=== PATIENT | male | born 1980 | race Caucasian/White ===

== ENCOUNTER 2018-01-24 12:02 | Emergency (ER) | payer MEDICAID ==
[2018-01-24] MEDS ORDERED: METO25TA93 PO (12:07)
[2018-01-24] MEDS ORDERED: LEVE500T75 PO (12:07)
[2018-01-24] MEDS ORDERED: SERT-184 PO (12:07)
[2018-01-24] MEDS ORDERED: NS(*) 0.9% 1000 ML BAG 1,000 ML IV ONE (12:15)
[2018-01-24] MEDS ORDERED: ONDANSETRON 4 MG/2 ML VIAL IVP ONE (12:15)
--- NOTE | 2018-01-24 12:30 | EKG ---
FACILITY: [facility] PATIENT NAME: KENDALL STILES : [id number] MR: [id number] V: [id number] EXAM DATE: ORDERING PHYSICIAN: GILBERT CHOPRA TECHNOLOGIST: Test Reason : Blood Pressure : / mmHG Vent. Rate : 105 BPM Atrial Rate : 105 BPM P-R Int : 144 ms QRS Dur : 094 ms QT Int : 368 ms P-R-T Axes : 076 060 056 degrees QTc Int : [address] abnormality, possible digitalis effect Abnormal ECG No previous ECGs available Confirmed by STEPHANIE DURAN ([id number]) on 01/24/2018 10:24:02 PM Referred By: AUDREY Confirmed By:STEPHANIE DURAN
[2018-01-24 12:31] LABS: PLATELET COUNT, AUTOMATED 158 K/uL (150-450)
[2018-01-24] MEDS ORDERED: KCL (*) 20 MEQ/100 ML PREMIX 100 ML IV ONE (12:40)
[2018-01-24] MEDS ORDERED: IOPAMIDOL 76% 75 ML INFUS BTL 75 ML ONE (12:45)
--- NOTE | 2018-01-24 12:54 | ER Report ---
History and Physical Time Seen By MD: 12:10 Hx. of Stated Complaint: PT REPORTS VOMITING FOR 3 DAYS HPI/ROS Chief concern: vomiting HPI: 37 year old male presents with concerns of abdominal pain and vomiting x3 days. Reports onset of small amount of hematemesis this AM, . Denies fever. Reports average daily intake of one pint of hard liquor, but states last alcoholic beverage was 2 days ago. Reports small amount of stool this AM, denies hematochezia, melena. Reports hematuria this AM. Denies burning with urination, dysuria. Describes pain as "all over" extending from his lower abdomen to his chest. Denies recent illnesses or abdominal surgeries. Review of Systems General: Denies fevers. Reports chills, sweats. Respiratory: Denies difficulty breathing. CV: Reports pain throughout chest cavity. GI: Reports vomiting x3 days. Reports small amount of hematemesis this AM. Reports small amount of stool, denies hematochezia, melena. : Reports gross hematuria. Denies dysuria, burning with urination. Allergies: Coded Allergies: No Known Drug Allergies (Unverified , 01/24/18) Home Meds Active Scripts Potassium Chloride (KLOR-CON M20) 20 Meq Tab.er.prt, 20 MEQ PO QDAY for 30 Days , #30 TAB Prov:GILBERT CHOPRA 01/24/18 Ketorolac Tromethamine (KETOROLAC TROMETHAMINE) 10 Mg Tab, 10 MG PO Q6H for 5 Days, #20 TAB Prov:GILBERT CHOPRA 01/24/18 Tamsulosin Hcl (FLOMAX) 0.4 Mg Cap.er.24h, 0.4 MG PO QDAY for 14 Days, #14 CAP Prov:GILBERT CHOPRA [facility] 01/24/18 Ondansetron (ZOFRAN ODT) 4 Mg Tab.rapdis, 4 MG PO Q6H Y for NAUSEA/VOMITING for 5 Days, #20 TAB.JIMMY Prov:GILBERT CHOPRA [facility] 01/24/18 Reported Medications Metoprolol Tartrate (METOPROLOL TARTRATE) 25 Mg Tablet, 1 TAB PO BID, TAB 01/24/18 Levetiracetam (LEVETIRACETAM) 500 Mg Tab.er.24h, 500 MG PO BID, TAB 01/24/18 Sertraline Hcl (SERTRALINE HCL) 50 Mg Tablet, 1 TAB PO QDAY, TAB 01/24/18 Past Medical/Surgical History Reports history of seizures, hypertension, "kidney problems", anxiety. 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 Hx Alcohol Use: Yes (1 PINT/DAY) Constitutional Vital Sign - Last 24 Hours 01/24/18 01/24/18 01/24/18 01/24/18 12:02 12:03 12:12 12:22 Temp 98.2 Pulse 121 108 116 Resp 16 16 36 B/P (MAP) 118/104 118/104 (109) Pulse Ox 96 96 97 O2 Delivery Room Air 01/24/18 01/24/18 01/24/18 01/24/18 12:27 12:30 12:35 12:40 Pulse 105 95 100 Resp 29 23 21 B/P (MAP) 122/96 (105) Pulse Ox 96 99 98 01/24/18 01/24/18 01/24/18 01/24/18 13:00 13:15 13:30 13:45 Pulse 88 94 103 Resp 18 19 18 B/P (MAP) 135/95 (108) 117/84 (95) Pulse Ox 94 90 96 01/24/18 01/24/18 01/24/18 01/24/18 13:50 13:55 14:00 14:05 Pulse 85 107 119 90 Resp 23 15 14 12 B/P (MAP) 159/97 (117) Pulse Ox 94 96 97 95 01/24/18 01/24/18 01/24/18 01/24/18 14:10 14:15 14:20 14:25 Pulse 91 87 101 98 Resp 10 19 55 17 Pulse Ox 95 94 96 95 01/24/18 01/24/18 14:30 14:35 Pulse 99 Resp 20 B/P (MAP) 140/95 (110) Pulse Ox 95 Intake and Output 01/24/18 01/24/18 01/25/18 15:00 23:00 07:00 Intake Total 1100 ml Balance 1100 ml Physical Exam Physical Exam General: Alert, oriented x3. Well developed, well nourished. Patient appears to be experiencing acute nausea throughout exam. HEENT: TMs pearly caal and intact, no erythema. Posterior pharynx pink, tonsillar pillars 1+ without exudate. Respiratory: Clear to auscultation bilaterally. Normal respiratory effort. CV: S1, S1S2 without murmurs, rubs, gallops. Reg. rate and rhythm. GI: bowel sounds hypoactive all quadrants. Epigastric pain with palpation. Scattered dullness/tympany to percussion. After obtaining a thorough HPI, ROS, and physical exam, the following differentials were considered but not limited to: AZ, small bowel obstruction, pancreatitis, UTI, viral gastroenteritis, kidney stones. Medical Decision Making Data Points Result Diagram: 01/24/18 1200 01/24/18 1200 Laboratory Hematology Test 01/24/18 12:00 Red Blood Count 5.94 M/uL (4.00-5.60) Mean Corpuscular Volume 90.9 fL (80.0-96.0) Mean Corpuscular Hemoglobin 32.5 pg (26.0-33.0) Mean Corpuscular Hemoglobin Concent 35.7 g/dL (32.0-36.0) Red Cell Distribution Width 13.1 % (11.5-14.5) Mean Platelet Volume 9.6 fL (7.2-11.1) Neutrophils (%) (Auto) 77.4 % (39.4-72.5) Lymphocytes (%) (Auto) 12.9 % (17.6-49.6) Monocytes (%) (Auto) 9.4 % (4.1-12.4) Eosinophils (%) (Auto) 0.1 % (0.4-6.7) Basophils (%) (Auto) 0.2 % (0.3-1.4) Nucleated RBC Relative Count (auto) 0.1 /100WBC Neutrophils # (Auto) 12.1 K/uL (2.0-7.4) Lymphocytes # (Auto) 2.0 K/uL (1.3-3.6) Monocytes # (Auto) 1.5 K/uL (0.3-1.0) Eosinophils # (Auto) 0.0 K/uL (0.0-0.5) Basophils # (Auto) 0.0 K/uL (0.0-0.1) Nucleated RBC Absolute Count (auto) 0.01 K/uL Urine Color Red Urine Clarity Turbid Urine pH Color interference Urine Specific Onset Color interference Urine Protein Color interference Urine Glucose (UA) Color interference Urine Ketones Color interference Urine Blood Color interference Urine Nitrite Color interference Urine Bilirubin Color interference Urine Urobilinogen Color interference Urine Leukocyte Esterase Color interference Urine RBC 7175 /HPF (0-2/HPF) Urine WBC None /HPF (0-5/HPF) Urine Squamous Epithelial Cells None /LPF (</=FEW) Urine Bacteria Negative /HPF (NONE-FEW) Urine Mucus Few /HPF (NONE-FEW) Sodium Level 142 mmol/L (137-145) Potassium Level 2.8 mmol/L (3.5-5.0) Chloride Level 96 mmol/L (98-107) Carbon Dioxide Level 22 mmol/L (22-30) Blood Urea Nitrogen 18 mg/dl (9-21) Creatinine 1.00 mg/dl (0.66-1.25) Glomerular Filtration Rate Calc > 60.0 Random Glucose 164 mg/dl (75-110) Calcium Level 9.5 mg/dl (8.4-10.2) Total Bilirubin 2.5 mg/dl (0.2-1.3) Aspartate Amino Transf (AST/SGOT) 36 U/L (0-35) Alanine Aminotransferase (ALT/SGPT) 35 U/L (0-56) Alkaline Phosphatase 104 U/L (0-126) Troponin I < 0.012 ng/ml Total Protein 8.9 gm/dl (6.3-8.2) Albumin 4.8 g/dl (3.5-5.0) Amylase Level 62 U/L (0-110) Lipase 40 U/L (23-300) Serum Alcohol < 10 mg/dl Chemistry Test 01/24/18 12:00 White Blood Count 15.6 k/uL (4.5-11.0) Red Blood Count 5.94 M/uL (4.00-5.60) Hemoglobin 19.3 g/dL (14.0-18.0) Hematocrit 54.0 % (42.0-52.0) Mean Corpuscular Volume 90.9 fL (80.0-96.0) Mean Corpuscular Hemoglobin 32.5 pg (26.0-33.0) Mean Corpuscular Hemoglobin Concent 35.7 g/dL (32.0-36.0) Red Cell Distribution Width 13.1 % (11.5-14.5) Platelet Count 158 K/uL (150-450) Mean Platelet Volume 9.6 fL (7.2-11.1) Neutrophils (%) (Auto) 77.4 % (39.4-72.5) Lymphocytes (%) (Auto) 12.9 % (17.6-49.6) Monocytes (%) (Auto) 9.4 % (4.1-12.4) Eosinophils (%) (Auto) 0.1 % (0.4-6.7) Basophils (%) (Auto) 0.2 % (0.3-1.4) Nucleated RBC Relative Count (auto) 0.1 /100WBC Neutrophils # (Auto) 12.1 K/uL (2.0-7.4) Lymphocytes # (Auto) 2.0 K/uL (1.3-3.6) Monocytes # (Auto) 1.5 K/uL (0.3-1.0) Eosinophils # (Auto) 0.0 K/uL (0.0-0.5) Basophils # (Auto) 0.0 K/uL (0.0-0.1) Nucleated RBC Absolute Count (auto) 0.01 K/uL Urine Color Red Urine Clarity Turbid Urine pH Color interference Urine Specific Onset Color interference Urine Protein Color interference Urine Glucose (UA) Color interference Urine Ketones Color interference Urine Blood Color interference Urine Nitrite Color interference Urine Bilirubin Color interference Urine Urobilinogen Color interference Urine Leukocyte Esterase Color interference Urine RBC 7175 /HPF (0-2/HPF) Urine WBC None /HPF (0-5/HPF) Urine Squamous Epithelial Cells None /LPF (</=FEW) Urine Bacteria Negative /HPF (NONE-FEW) Urine Mucus Few /HPF (NONE-FEW) Glomerular Filtration Rate Calc > 60.0 Calcium Level 9.5 mg/dl (8.4-10.2) Total Bilirubin 2.5 mg/dl (0.2-1.3) Aspartate Amino Transf (AST/SGOT) 36 U/L (0-35) Alanine Aminotransferase (ALT/SGPT) 35 U/L (0-56) Alkaline Phosphatase 104 U/L (0-126) Troponin I < 0.012 ng/ml Total Protein 8.9 gm/dl (6.3-8.2) Albumin 4.8 g/dl (3.5-5.0) Amylase Level 62 U/L (0-110) Lipase 40 U/L (23-300) Serum Alcohol < 10 mg/dl Toxicology Test 01/24/18 12:00 Serum Alcohol < 10 mg/dl Urinalysis Test 01/24/18 12:00 Urine Color Red Urine Clarity Turbid Urine pH Color interference Urine Specific Onset Color interference Urine Protein Color interference Urine Glucose (UA) Color interference Urine Ketones Color interference Urine Blood Color interference Urine Nitrite Color interference Urine Bilirubin Color interference Urine Urobilinogen Color interference Urine Leukocyte Esterase Color interference Urine RBC 7175 /HPF (0-2/HPF) Urine WBC None /HPF (0-5/HPF) Urine Squamous Epithelial Cells None /LPF (</=FEW) Urine Bacteria Negative /HPF (NONE-FEW) Urine Mucus Few /HPF (NONE-FEW) EKG/Imaging EKG Interpretation Vent. Rate : 105 BPM Atrial Rate : 105 BPM P-R Int : 144 ms QRS Dur : 094 ms QT Int : 368 ms P-R-T Axes : 076 060 056 degrees QTc Int : [address] abnormality, possible digitalis effect Abnormal ECG No previous ECGs available Monitor Interpretation: Sinus Tachycardia Imaging EXAMINATION: CT Abdomen and Pelvis With Contrast 01/24/2018 12:15 PM HISTORY: abdominal pain TECHNIQUE: Spiral scan was through the abdomen and pelvis during injection of nonionic iodinated intravenous contrast. Contrast: 75 mL of IV Isovue 370. One of the following dose optimization techniques was utilized in the performance of this exam: Automated exposure control; adjustment of the mA and/ or kV according to the patient's size; or use of an iterative reconstruction technique. Specific details can be referenced in the facility's radiology CT exam operational policy. COMPARISON STUDIES: none. FINDINGS: Liver / biliary: Fatty liver density. No focal finding. Density along the right posterior aspect of the gallbladder lumen near the neck is probably simply related to a fold in the wall although potentially noncalcified cholelithiasis. No acute gallbladder inflammation evident. No biliary dilatation. Pancreas: negative Spleen: Small incidental inferomedial accessory splenule. Additional 1.4 cm inferior accessory splenule. Adrenal glands: negative Kidneys / retroperitoneum: Right kidney is ptotic and rotated. No acute finding on either side. Pelvic structures: negative Bowel / peritoneum / mesenteries: Normal appendix. No obstruction or focal bowel pathology. No significant diverticular change. Vessels: Incidentally there are 2 upper renal arteries on the right and a third lower pole artery arising from the common iliac. Musculoskeletal / Body wall: Chronic bilateral L5 pars defects and subtle associated anterolisthesis of L5 on S1. Lymph node assessment: negative Lower chest: negative IMPRESSION: 1. No significant acute etiology for abdominal pain evident. 2. Likely gallbladder wall fold near the neck versus possible cholecystolithiasis. No CT evidence of acute gallbladder inflammation or biliary dilatation. Report Dictated By: Demar Mares MD at 01/24/2018 1:14 PM Report E-Signed By: Demar Mares MD at 01/24/2018 1:22 PM Examination: CHEST PA AND LAT Comparison: None. History: Chest and abdominal pain with nausea. Findings: No consolidation, nodule, or peribronchial inflammation. No pneumothorax, edema, or effusion. Cardiac and hilar contour size is within normal limits. Osseous structures are intact. IMPRESSION: No evidence of acute cardiopulmonary disease. Report Dictated By: Nitish Morales MD at 01/24/2018 1:07 PM Report E-Signed By: Nitish Morales MD at 01/24/2018 1:08 PM ED Course/Re-evaluation ED Course Patient admitted to exam room. Thorough HPI, ROS, and physical exam were obtained. On examination, patient experienced acute nausea throughout. Hypoactive bowel sounds on auscultation, epigastric pain on palpation, scattered dullness/tympany to percussion. Regular heart rate and rhythm, lung sounds clear throughout. After obtaining a thorough HPI, ROS, and physical exam , the following differentials were considered but not limited to: AZ, small bowel obstruction, pancreatitis, UTI, viral gastroenteritis, kidney stones. Labs completed include CBC, CMP, UA, troponin, amylase, lipase, serum alcohol, EKG, chest x-ray, abdominal CT. CBC showed WBC elevation of 15.6, glucose is likely secondary to the margination caused by the vomiting. CMP showed hypokalemia of 2.8 and glucose of 136. Hypokalemia treated in ED with potassium-chloride 20MEQ/100ML PREMIX at 50ml/hr. UA was negative. Troponin was negative. Serum alcohol negative. Amylase and lipase within normal limits. EKG showed: Sinus tachycardia ST abnormality, possible digitalis effect Abnormal ECG Chest X-ray Findings: No consolidation, nodule, or peribronchial inflammation. No pneumothorax, edema, or effusion. Cardiac and hilar contour size is within normal limits. Osseous structures are intact. IMPRESSION: No evidence of acute cardiopulmonary disease. Abdomen/pelvis CT with contrast: FINDINGS: Liver / biliary: Fatty liver density. No focal finding. Density along the right posterior aspect of the gallbladder lumen near the neck is probably simply related to a fold in the wall although potentially noncalcified cholelithiasis. No acute gallbladder inflammation evident. No biliary dilatation. Pancreas: negative Spleen: Small incidental inferomedial accessory splenule. Additional 1.4 cm inferior accessory splenule. Adrenal glands: negative Kidneys / retroperitoneum: Right kidney is ptotic and rotated. No acute finding on either side. Pelvic structures: negative Bowel / peritoneum / mesenteries: Normal appendix. No obstruction or focal bowel pathology. No significant diverticular change. Vessels: Incidentally there are 2 upper renal arteries on the right and a third lower pole artery arising from the common iliac. Musculoskeletal / Body wall: Chronic bilateral L5 pars defects and subtle associated anterolisthesis of L5 on S1. Lymph node assessment: negative Lower chest: negative IMPRESSION: 1. No significant acute etiology for abdominal pain evident. 2. Likely gallbladder wall fold near the neck versus possible cholecystolithiasis. No CT evidence of acute gallbladder inflammation or biliary dilatation. Based on patient's symptoms of nausea/vomiting and gross hematuria, in addition to provider's assessment of one renal calculi each in lower right and left ureters and one renal calculi in bladder on CT, we treated patient for kidney stones. Prescribed Flomax x14 days, Zofran for nausea, Toradol for pain, and potassium-chloride for hypokalemia. Recommended follow up with urology next week. Return if symptoms worsen. Patient verbalized understanding and agreed to plan. Decision to Disposition Date: Jan 24, 2018 Decision to Disposition Time: 14:32 Depart Departure Latest Vital Signs Vital Signs Date Time Temp Pulse Resp B/P (MAP) Pulse Ox O2 Delivery O2 Flow Rate FiO2 01/24/18 14:35 99 20 95 01/24/18 14:30 140/95 (110) 01/24/18 12:02 98.2 Room Air Impression: Primary Impression: Kidney calculi Additional Impressions: Hematuria Hypokalemia Condition: Improved Disposition: HOME OR SELF-CARE Referrals: ZAK HASSAN MD New Scripts Potassium Chloride (KLOR-CON M20) 20 Meq Tab.er.prt 20 MEQ PO QDAY for 30 Days, #30 TAB Prov: GILBERT CHOPRA 01/24/18 Ketorolac Tromethamine (KETOROLAC TROMETHAMINE) 10 Mg Tab 10 MG PO Q6H for 5 Days, #20 TAB Prov: GILBERT CHOPRA 01/24/18 Tamsulosin Hcl (FLOMAX) 0.4 Mg Cap.er.24h 0.4 MG PO QDAY for 14 Days, #14 CAP Prov: GILBERT CHOPRA 01/24/18 Ondansetron (ZOFRAN ODT) 4 Mg Tab.rapdis 4 MG PO Q6H Y for NAUSEA/VOMITING for 5 Days, #20 TAB.JIMMY Prov: GILBERT CHOPRA 01/24/18 Patient Instructions: Hematuria (ED), Hypokalemia (ED), Kidney Stones (ED) Additional Instructions: Take Flomax as directed for two weeks. Take Toradol for pain, zofran for nausea , and potassium for low potassium levels. Continue with clear liquid diet, rest. Follow up with urology next week. Return to ED if symptoms worsen. Problem Qualifiers Additional Impressions: Hematuria Hematuria type: gross Qualified Codes: R31.0 - Gross hematuria GILBERT CHOPRA Jan 24, 2018 12:54
--- NOTE | 2018-01-24 13:12 | RADIOLOGY IMAGING REPORT ---
FACILITY: [facility] [place] PATIENT NAME: Dionisio Franco : 1980 MR: [id number] V: [id number] EXAM DATE: ORDERING PHYSICIAN: GILBERT CHOPRA TECHNOLOGIST: Location: [facility] Patient: Dionisio Franco : 1980 Visit/Account:[id number] Date of Sevice: 01/24/2018 Examination: CHEST PA AND LAT Comparison: None. History: Chest and abdominal pain with nausea. Findings: No consolidation, nodule, or peribronchial inflammation. No pneumothorax, edema, or effusio n. Cardiac and hilar contour size is within normal limits. Osseous structures are intact. IMPRESSION: No evidence of acute cardiopulmonary disease. Report Dictated By: Nitish Morales MD at 01/24/2018 1:07 PM Report E-Signed By: Nitish Morales MD at 01/24/2018 1:08 PM WSN:[id number]
--- NOTE | 2018-01-24 13:26 | RADIOLOGY IMAGING REPORT ---
FACILITY: [facility] PATIENT NAME: Dionisio Franco : 1980 MR: [id number] V: [id number] EXAM DATE: ORDERING PHYSICIAN: GILBERT CHOPRA TECHNOLOGIST: Location: [facility] [place] Patient: Dionisio Franco : 1980 Visit/Account:[id number] Date of Sevice: 01/24/2018 EXAMINATION: CT Abdomen and Pelvis With Contrast 01/24/2018 12:15 PM HISTORY: abdominal pain TECHNIQUE: Spiral scan was through the abdomen and pelvis during injection of nonionic iodinated in travenous contrast. Contrast: 75 mL of IV Isovue 370. One of the following dose optimization techniques was utilized in the performance of this exam: Autom ated exposure control; adjustment of the mA and/or kV according to the patient's size; or use of an i terative reconstruction technique. Specific details can be referenced in the facility's radiology C T exam operational policy. COMPARISON STUDIES: none. FINDINGS: Liver / biliary: Fatty liver density. No focal finding. Density along the right posterior aspect of the gallbladder lumen near the neck is probably simply related to a fold in the wall although potent ially noncalcified cholelithiasis. No acute gallbladder inflammation evident. No biliary dilatation . Pancreas: negative Spleen: Small incidental inferomedial accessory splenule. Additional 1.4 cm inferior accessory splen ule. Adrenal glands: negative Kidneys / retroperitoneum: Right kidney is ptotic and rotated. No acute finding on either side. Pelvic structures: negative Bowel / peritoneum / mesenteries: Normal appendix. No obstruction or focal bowel pathology. No sign ificant diverticular change. Vessels: Incidentally there are 2 upper renal arteries on the right and a third lower pole artery danay sing from the common iliac. Musculoskeletal / Body wall: Chronic bilateral L5 pars defects and subtle associated anterolisthesis of L5 on S1. Lymph node assessment: negative Lower chest: negative IMPRESSION: 1. No significant acute etiology for abdominal pain evident. 2. Likely gallbladder wall fold near the neck versus possible cholecystolithiasis. No CT evidence o f acute gallbladder inflammation or biliary dilatation. Report Dictated By: Demar Mares MD at 01/24/2018 1:14 PM Report E-Signed By: Demar Mares MD at 01/24/2018 1:22 PM [id number]:[email or web address]
[2018-01-24 14:30] VITALS: BP 140/95
[2018-01-24] MEDS ORDERED: POTA20TA85 PO (14:32)
[2018-01-24] MEDS ORDERED: TAMS0.4C25 PO (14:32)
[2018-01-24] MEDS ORDERED: ONDA4TAB PO (14:32)
[2018-01-24] MEDS ORDERED: KET10 PO (14:32)
== END 2018-01-24 14:45 | disposition home or self-care (01) ==
LOC: ER 12:07
DX: N20.0 Calculus of kidney (principal); R31.9 Hematuria, unspecified; E87.6 Hypokalemia; R00.0 Tachycardia, unspecified; R94.31 Abnormal electrocardiogram [ECG] [EKG]
CPT/HCPCS: 71046; 74177; 81001; 82150; 83690; 84484; 85025; 87088; 93005; 96361; 96365; 96366; 96375; 99284; G0480; J2405; J3480; J7030; Q9967; 80320; 82040; 82247; 82310; 82374; 82435; 82565; 82947; 84075; 84132; 84155; 84295; 84450; 84460; 84520

== ENCOUNTER → 2018-01-24 | Outpatient (CLI) | payer MEDICAID ==
[~2018-01-24] MED LIST: KET10 PO; LEVE500T75 PO; METO25TA93 PO; ONDA4TAB PO; POTA20TA85 PO; SERT-184 PO; TAMS0.4C25 PO
== END ==
LOC: AMB 11:37
PROVIDERS: ATTEND Nurse Practitioner
DX: R53.81 Other malaise (principal); R53.1 Weakness; R11.2 Nausea with vomiting, unspecified
CPT/HCPCS: A0425; A0427